=== PATIENT | female | born 1960 | race Caucasian/White ===

== ENCOUNTER 2021-03-20 10:42 | Inpatient (IN) | payer OTHER ==
[2021-03-20] MEDS ORDERED: MAGNESIUM HYDROX 2400MG/30ML ORAL SUSPENSION 30 ML CUP PO PRN (15:30)
[2021-03-20] MEDS ORDERED: MAG HYDROX/AL HYDROX/SIMETH 30 ML UNIT-DOSE CUP PO PRN (15:30)
[2021-03-20] MEDS ORDERED: guaiFENesin 200 MG/10 ML 10 ML UNIT-DOSE CUPS PO PRN (15:30)
[2021-03-20] MEDS ORDERED: P-EPHED 60MG/TRIPROLIDI 2.5MG TABLET PO PRN (15:30)
[2021-03-20] MEDS ORDERED: LOPERAMIDE HCL 2 MG CAPSULE PO PRN (15:30)
[2021-03-20] MEDS ORDERED: ACETAMINOPHEN 325 MG TABLET (FP) PO PRN (15:30)
[2021-03-20] MEDS ORDERED: NICOTINE POLACRILEX 2 MG GUM BC PRN (15:30)
[2021-03-20] MEDS ORDERED: IBUPROFEN 400 MG TABLET (FP) PO PRN (15:30)
[2021-03-20] MEDS ORDERED: MAGNESIUM CITRATE 300 ML BOTTLE PO PRN (15:30)
[2021-03-20 15:37] VITALS: BMI 31.1
[2021-03-20] MEDS ORDERED: INSULIN (NOVOLOG) ASPART 100 UNITS/ML 10ML VIAL SQ ONE (16:11)
[2021-03-20] MEDS ORDERED: INSULIN (NOVOLOG) ASPART 100 UNITS/ML 10ML VIAL ONE ×2 (16:15→22:10)
[2021-03-20] MEDS: hydrOXYzine PAMOATE 25 MG CAPSULE (FP) PO SCH ×2 (19:09→21:32)
[2021-03-20] MEDS: CARVEDILOL 25 MG TABLET (FP) PO SCH (21:31)
[2021-03-20] MEDS: GABAPENTIN 300 MG CAPSULE PO SCH (21:31)
[2021-03-20] MEDS: ATORVASTATIN CA 20 MG TABLET (FP) PO SCH (21:31)
[2021-03-20] MEDS: THIAMINE HCL 100 MG TABLET (FP) PO SCH (21:32)
[2021-03-20] MEDS: MELATONIN 5 MG TABLETS PO SCH (21:32)
[2021-03-20] MEDS: INSULIN SLIDING SCALE (NOVOLOG) 1 VIAL SQ SCH ×2 (21:33→22:16)
[2021-03-21] MEDS: GABAPENTIN 300 MG CAPSULE PO SCH ×3 (06:33→21:52)
[2021-03-21] MEDS: hydrOXYzine PAMOATE 25 MG CAPSULE (FP) PO SCH ×5 (06:33→21:54)
[2021-03-21] MEDS ORDERED: INSULIN (NOVOLOG) ASPART 100 UNITS/ML 10ML VIAL ONE ×3 (06:35→16:48)
[2021-03-21] MEDS: INSULIN SLIDING SCALE (NOVOLOG) 1 VIAL SQ SCH ×4 (06:36→21:59)
[2021-03-21] MEDS ORDERED: PATIENT'S OWN MEDICATION (NON-FORMULARY) (Lisinopril [Lisinopril] 40 MG Tablet) PO SCH (10:00)
[2021-03-21] MEDS ORDERED: OXcarbazepine 300 MG TABLET (UD) PO SCH (10:00)
[2021-03-21] MEDS ORDERED: PATIENT'S OWN MEDICATION (NON-FORMULARY) (Fenofibrate Nanocrystallized [Fenofibrate] 48 MG PO SCH (10:00)
[2021-03-21] MEDS ORDERED: FENOFIBRIC ACID 45 MG CAP PO SCH (10:00)
[2021-03-21] MEDS: NICOTINE 7 MG/24 HOURS TOPICAL PATCH TD SCH (10:22)
[2021-03-21] MEDS: PRENATAL VITAMINS W/ FOLIC ACID TABLET (FP) PO SCH (10:32)
[2021-03-21] MEDS: FENOFIBRIC ACID 45 MG CAP PO SCH (10:33)
[2021-03-21] MEDS: ASPIRIN 81 MG CHEWABLE TABLETS PO SCH (10:33)
[2021-03-21] MEDS: amLODIPine BESYLATE 5 MG TABLET (FP) PO SCH (10:33)
[2021-03-21] MEDS: APIXABAN 5 MG TABLET PO SCH (10:33)
[2021-03-21] MEDS: CARVEDILOL 25 MG TABLET (FP) PO SCH ×2 (10:33→21:53)
[2021-03-21] MEDS: NITROFURANTOIN MACROCRYSTAL 50 MG CAPSULE (FP) PO SCH ×3 (10:33→17:42)
[2021-03-21] MEDS: LISINOPRIL 20 MG TABLET PO SCH (10:33)
[2021-03-21] MEDS: OXcarbazepine 300 MG TABLET (UD) PO SCH ×2 (11:23→21:55)
[2021-03-21] MEDS: VITAMIN B COMPLEX W/C COMBO TABLET (FP) PO SCH (15:02)
[2021-03-21] MEDS ORDERED: PT OWN MED DRAWER 7, Y5N ONE ×2 (16:49→17:35)
[2021-03-21] MEDS: ATORVASTATIN CA 20 MG TABLET (FP) PO SCH (21:53)
[2021-03-21] MEDS: risperiDONE 2 MG TABLET PO SCH (21:53)
[2021-03-21] MEDS: MELATONIN 5 MG TABLETS PO SCH (21:53)
[2021-03-21] MEDS: THIAMINE HCL 100 MG TABLET (FP) PO SCH (21:53)
[2021-03-22] MEDS: NITROFURANTOIN MACROCRYSTAL 50 MG CAPSULE (FP) PO SCH ×5 (00:59→23:58)
[2021-03-22] MEDS: hydrOXYzine PAMOATE 25 MG CAPSULE (FP) PO SCH ×5 (06:32→21:25)
[2021-03-22] MEDS: GABAPENTIN 300 MG CAPSULE PO SCH ×3 (06:33→21:25)
[2021-03-22] MEDS ORDERED: INSULIN (NOVOLOG) ASPART 100 UNITS/ML 10ML VIAL ONE ×2 (06:35→12:10)
[2021-03-22] MEDS: INSULIN SLIDING SCALE (NOVOLOG) 1 VIAL SQ SCH ×4 (06:36→21:27)
[2021-03-22 10:02] LABS: ALBUMIN 3.8 g/dl (3.4-5.0)
[2021-03-22 10:04] LABS: CALCIUM 9.5 mg/dL (8.5-10.1)
[2021-03-22 10:05] LABS: BLOOD UREA NITROGEN 22.6 mg/dL (7-18); CREATININE 1.1 mg/dL (0.55-1.3)
[2021-03-22 10:07] LABS: BILIRUBIN,TOTAL 0.3 mg/dL (0.2-1); TOT PROT 7.2 g/dl (6.4-8.2)
[2021-03-22 10:17] LABS: MCH 28.4 pg (25.7-33.7); MCHC 33.3 g/dl (32.0-36.0); MEAN CELL VOLUME 85.2 fl (80-96); PLATELET COUNT 325 K/MM3 (134-434); RBC 4.58 M/mm3 (3.60-5.2); RDW 13.9 % (11.6-15.6); WHITE BLOOD COUNT 7.7 K/mm3 (4.0-10.0)
[2021-03-22] MEDS: ASPIRIN 81 MG CHEWABLE TABLETS PO SCH (10:25)
[2021-03-22] MEDS: amLODIPine BESYLATE 5 MG TABLET (FP) PO SCH (10:25)
[2021-03-22] MEDS: LISINOPRIL 20 MG TABLET PO SCH (10:25)
[2021-03-22] MEDS: PRENATAL VITAMINS W/ FOLIC ACID TABLET (FP) PO SCH (10:26)
[2021-03-22] MEDS: APIXABAN 5 MG TABLET PO SCH (10:26)
[2021-03-22] MEDS: FENOFIBRIC ACID 45 MG CAP PO SCH (10:26)
[2021-03-22] MEDS: NICOTINE 7 MG/24 HOURS TOPICAL PATCH TD SCH (10:26)
[2021-03-22] MEDS: CARVEDILOL 25 MG TABLET (FP) PO SCH ×2 (10:27→21:29)
[2021-03-22] MEDS: OXcarbazepine 300 MG TABLET (UD) PO SCH ×2 (10:27→21:25)
[2021-03-22] MEDS: VITAMIN B COMPLEX W/C COMBO TABLET (FP) PO SCH (10:27)
[2021-03-22] MEDS ORDERED: PT OWN MED DRAWER 7, Y5N ONE ×5 (12:09→21:29)
[2021-03-22] MEDS: risperiDONE 2 MG TABLET PO SCH (21:25)
[2021-03-22] MEDS: ATORVASTATIN CA 20 MG TABLET (FP) PO SCH (21:25)
[2021-03-22] MEDS: THIAMINE HCL 100 MG TABLET (FP) PO SCH (21:25)
[2021-03-22] MEDS: MELATONIN 5 MG TABLETS PO SCH (21:27)
[2021-03-23] MEDS: GABAPENTIN 300 MG CAPSULE PO SCH ×3 (06:47→21:26)
[2021-03-23] MEDS: hydrOXYzine PAMOATE 25 MG CAPSULE (FP) PO SCH ×3 (06:47→13:52)
[2021-03-23] MEDS ORDERED: INSULIN (NOVOLOG) ASPART 100 UNITS/ML 10ML VIAL ONE ×2 (06:50→16:58)
[2021-03-23] MEDS: INSULIN SLIDING SCALE (NOVOLOG) 1 VIAL SQ SCH ×4 (06:51→21:25)
[2021-03-23] MEDS: NITROFURANTOIN MACROCRYSTAL 50 MG CAPSULE (FP) PO SCH ×4 (08:09→23:57)
[2021-03-23] MEDS ORDERED: PT OWN MED DRAWER 7, Y5N ONE ×5 (09:12→23:56)
[2021-03-23] MEDS: PRENATAL VITAMINS W/ FOLIC ACID TABLET (FP) PO SCH (10:13)
[2021-03-23] MEDS: amLODIPine BESYLATE 5 MG TABLET (FP) PO SCH (10:13)
[2021-03-23] MEDS: APIXABAN 5 MG TABLET PO SCH (10:13)
[2021-03-23] MEDS: ASPIRIN 81 MG CHEWABLE TABLETS PO SCH (10:13)
[2021-03-23] MEDS: OXcarbazepine 300 MG TABLET (UD) PO SCH ×2 (10:13→21:26)
[2021-03-23] MEDS: LISINOPRIL 20 MG TABLET PO SCH (10:13)
[2021-03-23] MEDS: NICOTINE 7 MG/24 HOURS TOPICAL PATCH TD SCH (10:14)
[2021-03-23] MEDS: CARVEDILOL 25 MG TABLET (FP) PO SCH ×2 (10:15→21:26)
[2021-03-23] MEDS: FENOFIBRIC ACID 45 MG CAP PO SCH (10:15)
[2021-03-23] MEDS ORDERED: hydrOXYzine PAMOATE 25 MG CAPSULE (FP) PO PRN (15:34)
[2021-03-23] MEDS: risperiDONE 2 MG TABLET PO SCH (21:26)
[2021-03-23] MEDS: THIAMINE HCL 100 MG TABLET (FP) PO SCH (21:26)
[2021-03-23] MEDS: ATORVASTATIN CA 20 MG TABLET (FP) PO SCH (21:26)
[2021-03-23] MEDS: MELATONIN 5 MG TABLETS PO SCH (21:29)
[2021-03-24 06:07] LABS: SARS-CoV-2 NAA Not Detected (Not Detected)
[2021-03-24] MEDS: NITROFURANTOIN MACROCRYSTAL 50 MG CAPSULE (FP) PO SCH ×4 (07:12→23:32)
[2021-03-24] MEDS: GABAPENTIN 300 MG CAPSULE PO SCH ×3 (07:13→21:36)
[2021-03-24] MEDS: INSULIN SLIDING SCALE (NOVOLOG) 1 VIAL SQ SCH ×4 (07:59→21:37)
[2021-03-24] MEDS ORDERED: INSULIN (NOVOLOG) ASPART 100 UNITS/ML 10ML VIAL ONE ×3 (08:04→21:47)
[2021-03-24] MEDS: LISINOPRIL 20 MG TABLET PO SCH (10:21)
[2021-03-24] MEDS: ASPIRIN 81 MG CHEWABLE TABLETS PO SCH (10:21)
[2021-03-24] MEDS: CARVEDILOL 25 MG TABLET (FP) PO SCH ×2 (10:21→21:36)
[2021-03-24] MEDS: amLODIPine BESYLATE 5 MG TABLET (FP) PO SCH (10:21)
[2021-03-24] MEDS: PRENATAL VITAMINS W/ FOLIC ACID TABLET (FP) PO SCH (10:21)
[2021-03-24] MEDS: VITAMIN B COMPLEX W/C COMBO TABLET (FP) PO SCH (10:22)
[2021-03-24] MEDS: NICOTINE 7 MG/24 HOURS TOPICAL PATCH TD SCH (10:22)
[2021-03-24] MEDS: FENOFIBRIC ACID 45 MG CAP PO SCH (10:23)
[2021-03-24] MEDS: OXcarbazepine 300 MG TABLET (UD) PO SCH ×2 (10:23→21:36)
[2021-03-24] MEDS: APIXABAN 5 MG TABLET PO SCH (10:24)
[2021-03-24 14:56] LABS: EPI CELLS 36 /uL (0-25.1); HYALINE CASTS 11 /uL (0-3.1); URINE APPEARANCE CLOUDY; URINE BACTERIA >9,000 /uL (0-1359); URINE BILIRUBIN NEGATIVE (NEGATIVE); URINE COLOR YELLOW; URINE GLUCOSE (UA) 1+ (NEGATIVE); URINE KETONE NEGATIVE (NEGATIVE); URINE LEUK ESTERASE TRACE (NEGATIVE); URINE NITRITE POSITIVE (NEGATIVE); URINE PROTEIN TRACE (NEGATIVE); URINE RBC 11 /uL (0-23.9); URINE UROBILINOGEN 0.2 mg/dL (0.2-1.0); URINE WBC 38 /uL (0-25.8)
[2021-03-24 15:55] LABS: YEAST MANY (NEGATIVE)
[2021-03-24] MEDS ORDERED: PT OWN MED DRAWER 7, Y5N ONE ×2 (16:39→18:22)
[2021-03-24] MEDS: ATORVASTATIN CA 20 MG TABLET (FP) PO SCH (21:36)
[2021-03-24] MEDS: MELATONIN 5 MG TABLETS PO SCH (21:36)
[2021-03-24] MEDS: THIAMINE HCL 100 MG TABLET (FP) PO SCH (21:36)
[2021-03-24] MEDS: risperiDONE 2 MG TABLET PO SCH (21:36)
[2021-03-24] MEDS ORDERED: INSULIN (LEVEMIR) 100 UNITS/ML UNITS SQ ONE (21:48)
[2021-03-25] MEDS ORDERED: PT OWN MED DRAWER 7, Y5N ONE ×2 (05:11→08:45)
[2021-03-25] MEDS: INSULIN SLIDING SCALE (NOVOLOG) 1 VIAL SQ SCH (06:22)
[2021-03-25] MEDS: NITROFURANTOIN MACROCRYSTAL 50 MG CAPSULE (FP) PO SCH (06:24)
[2021-03-25] MEDS: GABAPENTIN 300 MG CAPSULE PO SCH (06:24)
[2021-03-25 07:38] VITALS: TEMP 97.2
[2021-03-25 09:12] VITALS: BP 134/69; PULSE 74
[2021-03-25] MEDS: PRENATAL VITAMINS W/ FOLIC ACID TABLET (FP) PO SCH (09:13)
[2021-03-25] MEDS: ASPIRIN 81 MG CHEWABLE TABLETS PO SCH (09:13)
[2021-03-25] MEDS: LISINOPRIL 20 MG TABLET PO SCH (09:13)
[2021-03-25] MEDS: CARVEDILOL 25 MG TABLET (FP) PO SCH (09:14)
[2021-03-25] MEDS: VITAMIN B COMPLEX W/C COMBO TABLET (FP) PO SCH (09:14)
[2021-03-25] MEDS: amLODIPine BESYLATE 5 MG TABLET (FP) PO SCH (09:14)
[2021-03-25] MEDS: APIXABAN 5 MG TABLET PO SCH (09:15)
[2021-03-25] MEDS: NICOTINE 7 MG/24 HOURS TOPICAL PATCH TD SCH (09:15)
[2021-03-25] MEDS: OXcarbazepine 300 MG TABLET (UD) PO SCH (09:15)
[2021-03-25] MEDS: FENOFIBRIC ACID 45 MG CAP PO SCH (09:16)
== END 2021-03-25 09:48 | disposition home or self-care (01) | DRG 772 ==
LOC: YASAS 10:42 → Y5N 15:13
PROVIDERS: ADMIT Allergy & Immunology; ATTEND Allergy & Immunology
PROC: HZ42ZZZ Group Counseling for Substance Abuse Treatment, Cognitive-Behavioral (ICD-10-PCS; principal; 2021-03-20)
DX: F14.20 Cocaine dependence, uncomplicated (principal); F16.20 Hallucinogen dependence, uncomplicated; F17.210 Nicotine dependence, cigarettes, uncomplicated; F31.9 Bipolar disorder, unspecified; F19.280 Other psychoactive substance dependence with psychoactive substance-induced anxiety disorder; F19.282 Other psychoactive substance dependence with psychoactive substance-induced sleep disorder; F19.24 Other psychoactive substance dependence with psychoactive substance-induced mood disorder; F60.9 Personality disorder, unspecified; E78.5 Hyperlipidemia, unspecified; N30.00 Acute cystitis without hematuria; I10 Essential (primary) hypertension; E11.9 Type 2 diabetes mellitus without complications; Z79.84 Long term (current) use of oral hypoglycemic drugs; Z86.79 Personal history of other diseases of the circulatory system; Z85.3 Personal history of malignant neoplasm of breast; Z85.51 Personal history of malignant neoplasm of bladder; Z79.01 Long term (current) use of anticoagulants; Z95.2 Presence of prosthetic heart valve; Z93.3 Colostomy status; Z88.2 Allergy status to sulfonamides; Z88.5 Allergy status to narcotic agent
CPT/HCPCS: 36415; 80053; 81003; 82962; 85027; 86780; 93005; 93010; C9803; U0003; U0005